=== PATIENT | female | born 1985 | race African-American/Black ===

== ENCOUNTER 2018-07-13 19:41 | Emergency (ER) | payer MEDICAID, OTHER ==
[~2018-07-13] VITALS: Ht 149.9 cm; Wt 80.7 kg
[~2018-07-13 19:41] MED LIST: ACETAMINOPHEN-1 EAC1 ORAL; ALBUTEROL SULF8.5 GM INH; AZITHROMYCIN250 MG ORAL; IBUPROFEN800 M1 PO; MEDROL4 MG ORAL; NAPROSYN500 M1 ORAL; NKM; NORCO 5-325 TA1 EACH ORAL; TRAMADOL HCL50 MG ORAL; ZITHROMAX250 MG ORAL; ZOFRAN ODT4 MG ORAL; ZOFRAN4 MG ORAL
[2018-07-13] MEDS ORDERED: GABAPENTIN300 MG ORAL (20:22)
[2018-07-13] MEDS ORDERED: Norco 5mg/325mg tab ORAL ONE (20:30)
--- NOTE | 2018-07-13 20:46 | Diagnostic Imaging Report ---
EXAM: XR Left Ankle Complete, 3 or More Views CLINICAL HISTORY: PAIN TECHNIQUE: Frontal, lateral and oblique views of the left ankle. COMPARISON: No relevant prior studies available. FINDINGS: Bones/joints: No acute fracture. Soft tissues: No radiodense foreign body. Soft tissue swelling. IMPRESSION: No acute fracture.
[2018-07-13] MEDS ORDERED: IBUPROFEN600 MG ORAL (21:13)
[2018-07-13 21:30] VITALS: BP 138/98
--- NOTE | 2018-07-13 22:02 | Emergency Room Report ---
History of Present Illness General Chief Complaint: Lower Extremity Injury Source: Patient Present Illness HPI Patient is a 33-year-old female presenting for left ankle pain after feeling the L foot buckle underneath her. This occurred just prior to arrival. She denies falling or hitting her head. Pain is a 8/10 dull ache and does not radiate. Worse with walking. She has sprained the ankle in the past and this feels the same. She denies numbness/tingling Allergies: Coded Allergies: No Known Allergies (Unverified , 09/21/15) Patient History Past Medical History: see triage record Pertinent Family History: none Last Menstrual Period: 2016 Now: No Reviewed Nursing Documentation: PMH: Agreed; PSxH: Agreed Nursing Documentation-PMH Hx Cardiac Problems: No Hx Asthma: Yes Hx Cancer: No Hx Gastrointestinal Problems: No History Of Psychiatric Problem: Yes - anxiety Hx Neurological Problems: No Review of Systems All Other Systems: negative except mentioned in HPI Physical Exam Vital Signs Date Time Temp Pulse Resp B/P (MAP) Pulse Ox O2 Delivery O2 Flow Rate FiO2 07/13/18 20:16 98.8 82 18 99 Room Air 07/13/18 21:30 138/98 Sp02 EP Interpretation: reviewed, normal General Appearance: no apparent distress, alert, GCS 15, non-toxic Head: normocephalic, atraumatic Eyes: bilateral eye normal inspection, bilateral eye PERRL Musculoskeletal: back normal, gait/station normal, normal range of motion, no calf tenderness, swelling - L lateral ankle, tender - L lateral ankle Neurologic: alert, oriented x3, responsive, motor strength/tone normal, sensory intact, speech normal Psychiatric: judgement/insight normal, memory normal, mood/affect normal, no suicidal/homicidal ideation Skin: normal color, no rash, warm/dry, well hydrated Procedures Splinting Splinting : Consent: Verbal Location: L ankle Pre-Made Type: NIDIA wrap Pre-Proc Neuro Vasc Exam: normal Post-Proc Neuro Vasc Exam: normal Patient Tolerated: Well Complications: None Medical Decision Making PA Attestation Dr. Cabrera is my supervising physician. Patient management was discussed with my supervising physician Diagnostic Impression: Primary Impression: Left ankle sprain Qualified Codes: S93.402A - Sprain of unspecified ligament of left ankle, initial encounter ER Course Patient is a 33-year-old female presenting for left ankle pain after feeling the L foot buckle underneath her. Ddx considered include but not limited to sprain/strain, fracture, contusion Physical exam: Vitals within normal limits. No apparent distress Left ankle: There is tenderness to palpation and edema over the left lateral malleolus. Limited active range of motion. Sensation intact to light touch. X-ray of the left ankle is unremarkable Left ankle placed in NIDIA wrap and the patient is provided crutches. ER precautions are given. Patient given prescription for Motrin and will follow up with primary care physician. Other X-Ray Diagnostic Results Other X-Ray Diagnostic Results : X-Ray ordered: L ankle # of Views/Limited Vs Complete: 3 View Indication: Pain EP Interpretation: Yes NIDA Xray: Interpretation reviewed, by supervising MD, and agrees with findings. Interpretation: no dislocation, no soft tissue swelling, no fractures Impression: No acute disease Electronically Signed by: Manuel Stephen PA-C Last Vital Signs Date Time Temp Pulse Resp B/P (MAP) Pulse Ox O2 Delivery O2 Flow Rate FiO2 07/13/18 21:30 98.3 69 18 138/98 99 Room Air Status: improved Disposition: HOME, SELF-CARE Condition: Improved Scripts Ibuprofen* (MOTRIN*) 600 Mg Tablet 600 MG ORAL Q8H PRN for For Pain, #30 TAB 0 Refills Prov: MANUEL STEPHEN 07/13/18 Referrals: NON PHYSICIAN (PCP) Patient Instructions: Ankle Sprain, RICE for Routine Care of Injuries Additional Instructions: I discussed my findings with the patient. All questions and concerns have been answered. Treatment and medication compliance have been addressed. I advised the patient that they need to follow up with PMD in 3-5 days. Return to ED if pain remains or worsens, numbness or tingling occurs, new rash is noticed, fever is noticed, or if needed for any reason. Patient verbalized understanding of discharge instructions. MANUEL STEPHEN Jul 13, 2018 22:02
== END 2018-07-13 21:30 | disposition home or self-care (01) ==
LOC: EMR 21:10
DX: S93.402A Sprain of unspecified ligament of left ankle, initial encounter (principal); W19.XXXA Unspecified fall, initial encounter; Y92.9 Unspecified place or not applicable; J45.909 Unspecified asthma, uncomplicated; F41.9 Anxiety disorder, unspecified
CPT/HCPCS: 99283